=== PATIENT | female | born 2000 | race Caucasian/White ===

== ENCOUNTER 2021-04-13 11:14 | Emergency (ER) | payer OTHER ==
[2021-04-13 11:45] VITALS: BP 123/79; PULSE 92; RESP 18; TEMP 98.2
[2021-04-13 12:35] LABS: Basophils % (A) 1 %; Eosinophils % (A) 0 %; HCT 44.6 % (34.0-46.0); Lymphocytes # (A) 3.2 k/uL (1.0-4.8); Lymphocytes % (A) 37 %; MCH 32.5 pg (25.0-35.0); MCHC 33.7 g/dL (31.0-37.0); MCV 96.5 fL (80.0-100.0); Mean Platelet Volume 6.7; Monocytes # (A) 0.3 k/uL (0-1.0); Monocytes % (A) 3 %; Neutrophils % (A) 58 %; Platelet Count 325 k/uL (150-450); RBC 4.62 m/uL (3.80-5.40); RDW 12.9 % (11.5-15.5); WBC 8.7 k/uL (4.0-11.0)
--- NOTE | 2021-04-13 12:46 | XR ---
EXAMINATION TYPE: XR chest 2V DATE OF EXAM: 04/13/2021 COMPARISON: NONE HISTORY: Chest pain TECHNIQUE: Frontal and lateral views of the chest are obtained. FINDINGS: There is no focal air space opacity. No evidence for pneumothorax. No pleural effusion. The cardiac silhouette size is within normal limits. The osseous structures are grossly intact. IMPRESSION: 1. No acute cardiopulmonary process.
[2021-04-13 12:47] LABS: ALT 23 U/L (4-34); AST 31 U/L (14-36); African American GFR (CKD) >90 (>60 ml/min/1.73 sqM); Albumin 4.9 g/dL (3.5-5.0); Alkaline Phosphatase 64 U/L (38-126); Anion Gap 9 mmol/L; Blood Urea Nitrogen 10 mg/dL (7-17); Calcium 9.7 mg/dL (8.4-10.2); Carbon Dioxide 24 mmol/L (22-30); Chloride 104 mmol/L (98-107); Glucose 109 mg/dL (74-99); Magnesium 2.2 mg/dL (1.6-2.3); Non-African American GFR(CKD) >90 (>60 ml/min/1.73 sqM); Potassium 3.9 mmol/L (3.5-5.1); Sodium 137 mmol/L (137-145); Total Bilirubin 0.6 mg/dL (0.2-1.3); Total Protein 7.8 g/dL (6.3-8.2)
--- NOTE | 2021-04-13 12:49 | ED ---
Recheck HPI - General Chief Complaint: Recheck/Abnormal Lab/Rx Stated Complaint: seizure 3 days ago Time Seen by Provider: 04/13/21 11:55 Source: patient Mode of arrival: ambulatory Limitations: no limitations - History of Present Illness Initial Comments: Patient is a 20-year-old female presenting to the emergency department for a recheck after she had a syncopal event 3 days ago. Patient states she was at work, talking on the phone when she became diaphoretic, lightheaded and dizzy and then had a syncopal event for approximately 1 minute. Her coworkers told the patient that she seemed to be shaking during this minute long and was concerned that she may have had a seizure. She is no history of seizures, has not had syncopal events the past. Patient states she tried getting into her primary care's office today for checkup however was unsuccessful so she came to the ER for evaluation. She states over the weekend she just felt tired but o therwise her normal self. She has no specific complaints today. She denies any recent fevers or chills, no chest pain or shortness of breath. She denies being on any medications, she denies being . Abdominal pain, no nausea or vomiting. She has been eating well. She has no further complaints. Her vital signs are stable upon arrival. - Related Data Home Medications Medication Instructions Recorded Confirmed Enstilar 0.005%-0.064% Foam 1 applic TOPICAL BID 04/13/21 04/13/21 Allergies Allergy/AdvReac Type Severity Reaction Status Date / Time No Known Allergies Allergy Verified 04/13/21 14:17 Review of Systems ROS Statement: Those systems with pertinent positive or pertinent negative responses have been documented in the HPI. ROS Other: All systems not noted in ROS Statement are negative. Past Medical History Past Medical History: No Reported History History of Any Multi-Drug Resistant Organisms: None Reported Past Surgical History: No Surgical Hx Reported Past Psychological History: No Psychological Hx Reported Smoking Status: Vaper Past Alcohol Use History: None Reported Past Drug Use History: Marijuana General Exam - General Exam Comments Initial Comments: GENERAL: Patient is well-developed and well-nourished. Patient is nontoxic and in no acute distress. HEAD: Atraumatic, normocephalic. EYES: Pupils equal round and reactive to light, extraocular movements intact, sclera anicteric, conjunctiva are normal. Eyelids were unremarkable. ENT: TMs normal, nares patent, oropharynx clear without exudates. Moist mucous membranes. NECK: Normal range of motion, supple without lymphadenopathy or JVD. LUNGS: Unlabored respirations. Breath sounds clear to auscultation bilaterally and equal. No wheezes rales or rhonchi. HEART: Regular rate and rhythm without murmurs, rubs or gallops. ABDOMEN: Soft, nontender, normoactive bowel sounds. No guarding, no rebound. No masses appreciated. : Deferred MUSCULOSKELETAL: Normal extremities with adequate strength and normal range of motion, no pitting or edema. No clubbing or cyanosis. NEUROLOGICAL: Patient is alert and oriented x 3. Motor and sensory are also intact. Cranial nerves II through XII grossly intact. Symmetrical smile. Normal speech, normal gait. PSYCH: Normal mood, normal affect. SKIN: Warm, Dry, normal turgor, no rashes or lesions noted. Limitations: no limitations Course Vital Signs 04/13/21 11:41 Temperature 98.2 F Pulse Rate 92 Respiratory 18 Rate Blood Pressure 123/79 O2 Sat by Pulse 98 Oximetry Medical Decision Making - Medical Decision Making Patient is a 20-year-old female here for recheck after having a syncopal event 3 days ago while at work. According to coworkers she was shaking during this 1 minute and it feels like it could have been a seizure. She has no history of previous syncopal episodes or seizures. She is on no medications. Her vitals are stable upon arrival, her exam is unremarkable, she has no complaints today. EKG is reading normal sinus rhythm with sinus arrhythmia. Labs are all within normal limits including a negative troponin, hCG is negative, TSH is within normal limits. Urine shows no evidence of infection. Chest x-ray is normal. I discussed these findings with the patient. I recommended following up with her primary care. Return parameters were discussed with her and she verbalized understanding. Case discussed with Dr. Suero. - Lab Data Result diagrams: 04/13/21 12:16 04/13/21 12:16 Lab Results 04/13/21 04/13/21 04/13/21 Range/Units 12:16 12:16 12:16 WBC 8.7 (4.0-11.0) k/uL RBC 4.62 (3.80-5.40) m/uL Hgb 15.0 (11.4-16.0) gm/dL Hct 44.6 (34.0-46.0) % MCV 96.5 (80.0-100.0) fL MCH 32.5 (25.0-35.0) pg MCHC 33.7 (31.0-37.0) g/dL RDW 12.9 (11.5-15.5) % Plt Count 325 (150-450) k/uL MPV 6.7 Neutrophils % 58 % Lymphocytes % 37 % Monocytes % 3 % Eosinophils % 0 % Basophils % 1 % Neutrophils # 5.0 (1.3-7.7) k/uL Lymphocytes # 3.2 (1.0-4.8) k/uL Monocytes # 0.3 (0-1.0) k/uL Eosinophils # 0.0 (0-0.7) k/uL Basophils # 0.0 (0-0.2) k/uL Sodium 137 (137-145) mmol/L Potassium 3.9 (3.5-5.1) mmol/L Chloride 104 (98-107) mmol/L Carbon Dioxide 24 (22-30) mmol/L Anion Gap 9 mmol/L BUN 10 (7-17) mg/dL Creatinine 0.60 (0.52-1.04) mg/dL Est GFR (CKD-EPI)AfAm >90 (>60 ml/min/1.73 sqM) Est GFR (CKD-EPI)NonAf >90 (>60 ml/min/1.73 sqM) Glucose 109 H (74-99) mg/dL Calcium 9.7 (8.4-10.2) mg/dL Magnesium 2.2 (1.6-2.3) mg/dL Total Bilirubin 0.6 (0.2-1.3) mg/dL AST 31 (14-36) U/L ALT 23 (4-34) U/L Alkaline Phosphatase 64 (38-126) U/L Troponin I <0.012 (0.000-0.034) ng/mL Total Protein 7.8 (6.3-8.2) g/dL Albumin 4.9 (3.5-5.0) g/dL TSH 0.655 (0.465-4.680) mIU/L HCG, Quant <2.4 mIU/mL Urine Color Urine Appearance (Clear) Urine pH (5.0-8.0) Ur Specific [place] (1.001-1.035) Urine Protein (Negative) Urine Glucose (UA) (Negative) Urine Ketones (Negative) Urine Blood (Negative) Urine Nitrite (Negative) Urine Bilirubin (Negative) Urine Urobilinogen (<2.0) mg/dL Ur Leukocyte Esterase (Negative) Urine RBC (0-5) /hpf Urine WBC (0-5) /hpf Ur Squamous Epith Cells (0-4) /hpf Urine Bacteria (None) /hpf 04/13/21 Range/Units 12:16 WBC (4.0-11.0) k/uL RBC (3.80-5.40) m/uL Hgb (11.4-16.0) gm/dL Hct (34.0-46.0) % MCV (80.0-100.0) fL MCH (25.0-35.0) pg MCHC (31.0-37.0) g/dL RDW (11.5-15.5) % Plt Count (150-450) k/uL MPV Neutrophils % % Lymphocytes % % Monocytes % % Eosinophils % % Basophils % % Neutrophils # (1.3-7.7) k/uL Lymphocytes # (1.0-4.8) k/uL Monocytes # (0-1.0) k/uL Eosinophils # (0-0.7) k/uL Basophils # (0-0.2) k/uL Sodium (137-145) mmol/L Potassium (3.5-5.1) mmol/L Chloride (98-107) mmol/L Carbon Dioxide (22-30) mmol/L Anion Gap mmol/L BUN (7-17) mg/dL Creatinine (0.52-1.04) mg/dL Est GFR (CKD-EPI)AfAm (>60 ml/min/1.73 sqM) Est GFR (CKD-EPI)NonAf (>60 ml/min/1.73 sqM) Glucose (74-99) mg/dL Calcium (8.4-10.2) mg/dL Magnesium (1.6-2.3) mg/dL Total Bilirubin (0.2-1.3) mg/dL AST (14-36) U/L ALT (4-34) U/L Alkaline Phosphatase (38-126) U/L Troponin I (0.000-0.034) ng/mL Total Protein (6.3-8.2) g/dL Albumin (3.5-5.0) g/dL TSH (0.465-4.680) mIU/L HCG, Quant mIU/mL Urine Color Colorless Urine Appearance Clear (Clear) Urine pH 6.0 (5.0-8.0) Ur Specific [place] 1.005 (1.001-1.035) Urine Protein Negative (Negative) Urine Glucose (UA) Negative (Negative) Urine Ketones Negative (Negative) Urine Blood Trace H (Negative) Urine Nitrite Negative (Negative) Urine Bilirubin Negative (Negative) Urine Urobilinogen <2.0 (<2.0) mg/dL Ur Leukocyte Esterase Negative (Negative) Urine RBC <1 (0-5) /hpf Urine WBC <1 (0-5) /hpf Ur Squamous Epith Cells 4 (0-4) /hpf Urine Bacteria Rare H (None) /hpf - EKG Data EKG Comments: Normal sinus rhythm with sinus arrhythmia, no signs of acute process at this time. Ventricular rate 71, ND interval 112, QT 354. Disposition Clinical Impression: Syncope Disposition: HOME SELF-CARE Condition: Stable Instructions (If sedation given, give patient instructions): Normal Exam (ED) Additional Instructions: Please return to the Emergency Department if symptoms worsen or any other concerns. Is patient prescribed a controlled substance at d/c from ED?: No Referrals: Subhash Clayton DO [Primary Care Provider] - 1-2 days Time of Disposition: 14:26
[2021-04-13 13:38] LABS: Appearance,Urine Clear (Clear); Bacteria,Urine Rare /hpf; Bilirubin,Urine Negative (Negative); Blood,Urine Trace (Negative); Color,Urine Colorless; Glucose,Urine (UA) Negative (Negative); Ketones,Urine Negative (Negative); Leukocyte Esterase,Urine Negative (Negative); Nitrite,Urine Negative (Negative); Protein,Urine Negative (Negative); RBC,Urine <1 /hpf (0-5); Specific Gravity,Urine 1.005 (1.001-1.035); Squamous Epithelial Cell,Urine 4 /hpf (0-4); Urobilinogen,Urine <2.0 mg/dL (<2.0); WBC,Urine <1 /hpf (0-5)
[2021-04-13 13:40] LABS: HCG,Quantitative Serum <2.4 mIU/mL
== END 2021-04-13 14:39 | disposition home or self-care (01) ==
LOC: EC 11:14
DX: R55 Syncope and collapse (principal); R56.9 Unspecified convulsions; R42 Dizziness and giddiness; R61 Generalized hyperhidrosis; F17.290 Nicotine dependence, other tobacco product, uncomplicated
CPT/HCPCS: 36415; 71046; 80053; 81001; 83735; 84443; 84484; 84702; 85025; 93005; 99285

== ENCOUNTER 2022-04-06 10:38 | Emergency (ER) | payer OTHER ==
[2022-04-06 11:21] VITALS: BP 140/83; PULSE 114; RESP 20; TEMP 98
--- NOTE | 2022-04-06 12:22 | ED ---
Lower Extremity Injury HPI - General Chief Complaint: Extremity Injury, Lower Stated Complaint: ankle injury Time Seen by Provider: 04/06/22 11:23 Source: patient, RN notes reviewed Mode of arrival: ambulatory Limitations: no limitations - History of Present Illness Initial Comments: 21-year-old female presents emergency Department chief complaint of right ankle, right foot pain. Patient states she rolled her ankle for clot yesterday. Patient denies any paresthesias states her swelling, bruising. No prior fractures. Dies any pain proximal to her right ankle no other complaints. - Related Data Home Medications Medication Instructions Recorded Confirmed Enstilar 0.005%-0.064% Foam 1 applic TOPICAL BID 04/13/21 04/13/21 Allergies Allergy/AdvReac Type Severity Reaction Status Date / Time No Known Allergies Allergy Verified 04/06/22 11:21 Review of Systems ROS Statement: Those systems with pertinent positive or pertinent negative responses have been documented in the HPI. ROS Other: All systems not noted in ROS Statement are negative. Past Medical History Past Medical History: No Reported History History of Any Multi-Drug Resistant Organisms: None Reported Past Surgical History: No Surgical Hx Reported Past Psychological History: No Psychological Hx Reported Smoking Status: Vaper Past Alcohol Use History: None Reported Past Drug Use History: Marijuana General Exam Limitations: no limitations General appearance: alert, in no apparent distress Head exam: Present: atraumatic, normocephalic, normal inspection Neck exam: Present: normal inspection, full ROM. Absent: tenderness, meningismus, lymphadenopathy Respiratory exam: Present: normal lung sounds bilaterally. Absent: respiratory distress, wheezes, rales, rhonchi, stridor Cardiovascular Exam: Present: regular rate, normal rhythm, normal heart sounds. Absent: systolic murmur, diastolic murmur, rubs, gallop, clicks Extremities exam: Present: other (Right ankle, right foot there is ecchymosis, swelling with tenderness palpation, neurovascular intact no proximal tib-fib tenderness) Course Vital Signs 04/06/22 11:19 Temperature 98 F Pulse Rate 114 H Respiratory 20 Rate Blood Pressure 140/83 O2 Sat by Pulse 99 Oximetry Procedures - Orthopedic Splinting/Casting Injury #1 Side: right Lower Extremity Injury Location: short leg, foot Lower Extremity Immobilizer: posterior splint, synthetic pre-padded splint Other Orthopedic Equipment: crutches Medical Decision Making - Medical Decision Making 20-year-old presented for right foot injury patient has evidence of fifth meta tarsal fracture on x-ray as read by radiologist. Patient was splinted, crutches were provided, patient will follow-up with orthopedics return parameters were discussed. Disposition Clinical Impression: Open nondisplaced fracture of fifth right metatarsal bone Disposition: HOME SELF-CARE Condition: Stable Instructions (If sedation given, give patient instructions): Foot Fracture in Adults (ED) Additional Instructions: Please return to the Emergency Department if symptoms worsen or any other concerns. Is patient prescribed a controlled substance at d/c from ED?: No Referrals: Subhash Clayton DO [Primary Care Provider] - 1-2 days Graeme Montanez MD [STAFF PHYSICIAN] - 1-2 days Time of Disposition: 12:35
--- NOTE | 2022-04-06 12:28 | XR ---
EXAMINATION TYPE: XR ankle complete RT, XR foot complete RT DATE OF EXAM: 04/06/2022 CLINICAL HISTORY: Rolling injury with pain TECHNIQUE: Frontal, lateral and oblique images of the right ankle and foot are obtained. COMPARISON: None. FINDINGS: There is no acute fracture/dislocation evident in the right ankle. The ankle mortise appe ars within normal limits. The overlying soft tissue appears unremarkable. Linear lucency consistent with nondisplaced transverse fracture through base of fifth metatarsal. Th e joint spaces in the right foot are preserved. Overlying soft tissue is unremarkable. IMPRESSION: There is an acute nondisplaced transverse fracture base of fifth metatarsal. (Suero type fracture)
== END 2022-04-06 13:30 | disposition home or self-care (01) ==
LOC: EC 10:38
DX: S92.354B Nondisplaced fracture of fifth metatarsal bone, right foot, initial encounter for open fracture (principal); F17.209 Nicotine dependence, unspecified, with unspecified nicotine-induced disorders; X58.XXXA Exposure to other specified factors, initial encounter
CPT/HCPCS: 29515; 99283

== ENCOUNTER → 2022-08-04 | Outpatient (CLI) | payer OTHER ==
[2022-08-04 16:04] LABS: HCT 30.8 % (37.2-46.3); HGB 10.1 g/dL (12.0-15.0); MCHC 32.8 g/dL (32.0-37.0); MCV 97.5 fL (80.0-97.0); Mean Platelet Volume 8.9 fL (9.5-12.2); NRBC Per 100 WBC 0 /100 WBCS (0.0-0.0); Platelet Count 244 X 10*3/uL (140-440); RBC 3.16 X 10*6/uL (4.10-5.20); WBC 10.12 X 10*3/uL (4.50-10.00)
== END | disposition home or self-care (01) ==
LOC: LABWHC1 09:58
PROVIDERS: ATTEND Obstetrics & Gynecology
DX: Z34.82 Encounter for supervision of other normal pregnancy, second trimester (principal); Z3A.00 Weeks of gestation of pregnancy not specified
CPT/HCPCS: 36415; 82950; 85027

== ENCOUNTER → 2022-08-13 | Outpatient (CLI) | payer BC ==
[2022-08-13 11:56] LABS: Glucose 3 Hour, Gest 209 mg/dL
== END | disposition home or self-care (01) ==
LOC: LABWHC1 07:40
PROVIDERS: ATTEND Obstetrics & Gynecology
DX: O99.810 Abnormal glucose complicating pregnancy (principal); Z3A.00 Weeks of gestation of pregnancy not specified
CPT/HCPCS: 36415; 82951; 82952

== ENCOUNTER 2022-10-11 02:26 | Inpatient (IN) | payer BC ==
[2022-10-11 02:40] LABS: Glucose,Whole Blood 90 mg/dL (70-110)
[2022-10-11] MEDS ORDERED: LIDOCAINE 0.5% (PF) 5 MG/ML (50 ML SDV) SQ PRN (02:48)
[2022-10-11] MEDS ORDERED: TERBUTALINE 1 MG/ML VIAL SQ PRN (02:48)
[2022-10-11] MEDS ORDERED: BUTORPHANOL 1 MG/ML 1 ML VIAL IV PRN (02:49)
[2022-10-11] MEDS: LACTATED RINGERS 1,000 ML IV SCH ×5 (03:00→22:09)
[2022-10-11 03:09] LABS: Basophils # (A) 0.1 k/uL (0-0.2); Basophils % (A) 1 %; Eosinophils # (A) 0.1 k/uL (0-0.7); Eosinophils % (A) 1 %; HCT 34.1 % (34.0-46.0); Lymphocytes # (A) 2.7 k/uL (1.0-4.8); Lymphocytes % (A) 31 %; MCH 32.9 pg (25.0-35.0); MCHC 35.2 g/dL (31.0-37.0); MCV 93.4 fL (80.0-100.0); Mean Platelet Volume 7.2; Monocytes # (A) 0.5 k/uL (0-1.0); Monocytes % (A) 5 %; Neutrophils # (A) 5.1 k/uL (1.3-7.7); Neutrophils % (A) 59 %; Platelet Count 199 k/uL (150-450); RBC 3.65 m/uL (3.80-5.40); RDW 14.3 % (11.5-15.5); WBC 8.7 k/uL (3.8-10.6)
[2022-10-11 05:59] LABS: Glucose,Whole Blood 76 mg/dL (70-110)
[2022-10-11] MEDS ORDERED: OXYTOCIN 30 UNITS/500 ML NS 30 UNIT in SALINE 1 500ML.BAG IV SCH ×2 (06:15→17:31)
[2022-10-11] MEDS ORDERED: SODIUM CHLORIDE 0.9% 100 ML BAG ONE (07:28)
[2022-10-11] MEDS ORDERED: fentaNYL (PF) 50 MCG/ML 5 ML AMP ONE (07:28)
[2022-10-11] MEDS ORDERED: ROPIVACAINE 5 MG/ML 20 ML AMPULE ONE (07:28)
--- NOTE | 2022-10-11 09:08 | P.HPOB ---
History of Present Illness H&P Date: 10/11/22 Chief Complaint: Spontaneous rupture membranes This is a 22-year-old female 1 para 0 with an estimated date of confinement of 10/13/2022, estimated gestational age of 39-5/7 weeks, who presents to labor and delivery with complaints of spontaneous rupture membranes at approximately 1 AM with clear fluid noted. She has been feeling contractions even prior to rupture membranes but they became stronger after rupture membranes. Her has been complicated by gestational diabetes diet controlled. She also was noted to have a marginal cord insertion. She has been getting regular surveillance with nonstress tests and biophysical profiles in the office. labs: Hepatitis B surface antigen-negative RPR-nonreactive Rubella-immune Blood type-O+ Antibody screen-negative HIV-nonreactive Hemoglobin-12.6 Toxoplasma screen-negative Random glucose-77 Pap smear-atypical spinous cells of undetermined significance with positive high risk HPV GC/Chlamydia/Trichomonas-negative One hour Glucola-186 Three-hour Glucola-abnormal Group B streptococcus-negative Obstetrical history: This is her first Gynecologic history: She does have a history of Trichomonas treated in the past. Social history: She is single. She works full-time as a motion graphics artist. Review of Systems Constitutional: Denies chills, Denies fever Eyes: denies blurred vision, denies pain Ears, nose, mouth and throat: Denies headache, Denies sore throat Cardiovascular: Denies chest pain, Denies shortness of breath Respiratory: Denies cough Gastrointestinal: Reports abdominal pain (Contractions) Genitourinary: Reports pelvic pain, Reports Musculoskeletal: Reports low back pain Integumentary: Denies pruritus, Denies rash Neurological: Denies numbness, Denies weakness Psychiatric: Denies anxiety, Denies depression Past Medical History Past Medical History: No Reported History Additional Past Medical History / Comment(s): GDM History of Any Multi-Drug Resistant Organisms: None Reported Past Surgical History: No Surgical Hx Reported Past Anesthesia/Blood Transfusion Reactions: No Reported Reaction Past Psychological History: No Psychological Hx Reported Smoking Status: Never smoker Past Alcohol Use History: None Reported Past Drug Use History: None Reported - Past Family History Mother Family Medical History: Cancer (Cervix) Medications and Allergies Home Medications Medication Instructions Recorded Confirmed Type Vit No.179/Iron/Folic 1 each PO DAILY 10/11/22 10/11/22 History [ Tablet] Allergies Allergy/AdvReac Type Severity Reaction Status Date / Time No Known Allergies Allergy Verified 04/06/22 11:21 Exam Osteopathic Statement: *. No significant issues noted on an osteopathic structural exam other than those noted in the History and Physical/Consult. Vital Signs Temp Pulse Resp BP Pulse Ox 10/11/22 02:54 98.0 F 100 16 135/77 93 L 10/11/22 02:27 98.0 F 100 16 135/72 93 L Intake and Output 10/10/22 10/11/22 10/11/22 22:59 06:59 14:59 Other: # Voids 1 Weight 50.349 kg HEENT: Within normal limits Heart: Regular rate and rhythm Lungs: Clear to auscultation bilaterally Abdomen: Cervix: 1 cm/80%/-2 station on admission. Grossly ruptured clear fluid is noted with positive amnisure. heart tones: Category 1 Contractions: Every 2-3 minutes Extremities: Negative Homans Results Result Diagrams: 10/11/22 03:00 Abnormal Lab Results - Last 24 Hours (Table) 10/11/22 Range/Units 03:00 RBC 3.65 L (3.80-5.40) m/uL Assessment and Plan (1) 39 weeks gestation of Current Visit: Yes Status: Acute Code(s): Z3A.39 - 39 WEEKS GESTATION OF SNOMED Code(s): 19284007 (2) Gestational diabetes mellitus (GDM) affecting first Current Visit: Yes Status: Acute Code(s): O24.419 - GESTATIONAL DIABETES MELLITUS IN , UNSP CONTROL SNOMED Code(s): 70360800904229 Plan: Admission for active labor. Epidural anesthesia if desired. Oxytocin augmentation of labor. Expectant management. Will monitor sugars while in labor.
[2022-10-11 09:30] LABS: Glucose,Whole Blood 73 mg/dL (70-110)
[2022-10-11 12:12] LABS: Glucose,Whole Blood 65 mg/dL (70-110)
[2022-10-11] MEDS ORDERED: CITRIC ACID-SODIUM CITRATE 15 ML CUP PO ONE (15:37)
[2022-10-11] MEDS ORDERED: NALBUPHINE 10 MG/ML (1 ML AMP) ONE (16:05)
[2022-10-11] MEDS ORDERED: ONDANSETRON 4 MG/2 ML VIAL ONE (16:05)
[2022-10-11] MEDS ORDERED: MORPHINE SULFATE (PF) 0.3 MG/0.3 ML SYR ONE (16:05)
[2022-10-11] MEDS ORDERED: OXYTOCIN 30 UNITS/500 ML NS BAG IV ONE (16:05)
[2022-10-11] MEDS ORDERED: KETOROLAC 15 MG/ML 1 ML VIAL ONE (16:05)
[2022-10-11] MEDS ORDERED: METHYLERGONOVINE 0.2 MG/ML 1 ML AMP ONE (16:05)
[2022-10-11] MEDS ORDERED: HYDROmorphone 0.5 MG/0.5 ML SYRINGE IVP PRN ×2 (16:29→17:31)
[2022-10-11] MEDS ORDERED: KETOROLAC 15 MG/ML 1 ML VIAL IVP PRN (16:29)
[2022-10-11] MEDS ORDERED: NALOXONE 0.4 MG/ML 1 ML VIAL IV PRN (16:29)
[2022-10-11] MEDS ORDERED: ONDANSETRON 4 MG/2 ML VIAL IVP PRN (16:29)
--- NOTE | 2022-10-11 16:55 | P.OP ---
Date of Procedure: 10/11/22 Preoperative Diagnosis: 1. Intrauterine at 39-5/7 weeks. 2. Failure to progress. 3. Gestational diabetes-diet controlled. Postoperative Diagnosis: Same Procedure(s) Performed: Primary low transverse section Anesthesia: spinal (Duramorph) Surgeon: Delmis Canada Estimated Blood Loss (ml): 1,000 Pathology: other (Placenta) Condition: stable Disposition: floor Indications for Procedure: This is a 22-year-old female 1 para 0 at 39-5/7 weeks who presented with spontaneous rupture membranes. She underwent oxytocin augmentation of labor and did receive epidural anesthesia. She reached a maximum of about 6 cm in her anterior lip of the cervix became very swollen. She had not made significant change for several hours and was getting very uncomfortable due to her epidural not working very well. The decision was made with the patient and Dr. Jackson who was present to proceed with primary section. I have discussed the risks, benefits, and alternative therapies for the above- mentioned procedure and for both sedation/anesthesia as well as necessary blood products administration, if indicated, as they pertain to this patient. The patient has indicated her understanding and acceptance of the risks and procedures discussed. Operative Findings: A viable female infant is noted in the left occiput posterior lie in the vertex presentation with scores of 9 at 1 minute and 9 at 5 minutes and infant weight of 7 lbs. 10 oz. Normal uterus tubes and ovaries are noted. Description of Procedure: The patient is taken to the operating room where she is placed in the dorsal supine position with leftward tilt after spinal Duramorph anesthesia is given. Previous epidural was removed prior to going back. She is prepped and draped in the normal sterile fashion. Skin was tested and found to be adequately anesthetized. A Pfannenstiel skin incision was made with a scalpel. A second knife was used to carry the incision down to the underlying layer of fascia. The fascia was nicked in the midline with a scalpel and then extended laterally bilaterally with Monreal scissors. The anterior lip of the fascia was grasped with 2 Alfonso clamps and then dissected off the underlying rectus muscle in the midline with Monreal scissors. The inferior aspect of the fascial incision was grasped with 2 Alfonso clamps and dissected off the underlying rectus muscle and the midline with Monreal scissors. Next the peritoneum layer was tented up with 2 hemostats and then entered sharply with the scalpel. The incision is extended superiorly and inferiorly with Metzenbaum scissors. Next a DeLee retractor is placed. The vesicouterine peritoneum is entered sharply with Metzenbaum scissors and extended laterally bilaterally with Metzenbaum scissors and then the bladder flap is pushed inferiorly. The lower uterine segment is incised in transverse fashion with the scalpel and then bluntly entered with a hemostat. Clear fluid is noted. The incision was then extended laterally bilaterally with 2 fingers. Next the 's head is delivered through the incision. was noted to be in a left occiput posterior lie. Nose and mouth are bulb suctioned. The remainder of the is easily delivered and placed on mother's abdomen. Cord is clamped and cut. is taken to warmer by nursing staff. Uterine fundus is gently massaged and placenta is delivered manually. Uterus is exteriorized and cleared of all clots and debris. Uterus initially is noted to be boggy and Pitocin is given IV. Uterine incision is closed with 0 Vicryl suture in a running locked fashion. A second layer of 0 Vicryl suture is used in a running fashion for hemostasis. Once adequate hemostasis as assured, the vesicouterine peritoneum is reapproximated with 2-0 Vicryl suture in a running fashion. Posterior cul-de-sac is suctioned of all clots and debris. Uterus is returned to the abdomen. Incision is noted to be hemostatic. Peritoneal layer is closed with 0 Vicryl suture in a running fashion. Muscle layer is reapproximated with 0 Vicryl suture in interrupted fashion. Fascia layer is then closed with 0 PDS suture with 2 sutures meeting in the midline and the knots buried in either side and in the midline. The subcutaneous tissue was then closed with 2-0 Vicryl suture. Skin layer was then closed with renee. All sponge and needle counts are correct. At this point her fundus was noted to be slightly above the umbilicus and towards the left side. Uterus was massaged and a large amount of clot was expressed from the uterus. A gloved hand was placed within the uterine cavity and some more clot was removed. After removing this extra clot, no active bleeding was noted. She was given 1 dose of Methergine 0.2 mg IM while in the operating room. Uterus was watched and fundus did firm up. The patient is taken to recovery room in stable condition. We'll give rectal Cytotec when she reaches the room.
[2022-10-11] MEDS ORDERED: miSOPROStoL 200 MCG TAB RECTAL STA (17:00)
[2022-10-11] MEDS ORDERED: HYDROCORTISONE 2.5% RECTAL CREAM 30 GM TUBE RECTAL PRN (17:31)
[2022-10-11] MEDS ORDERED: diphenhydrAMINE 50 MG/ML 1 ML VIAL IVP PRN ×2 (17:31)
[2022-10-11] MEDS ORDERED: diphenhydrAMINE 25 MG CAP PO PRN (17:31)
[2022-10-11] MEDS ORDERED: diphenhydrAMINE 50 MG CAP PO PRN (17:31)
[2022-10-11] MEDS ORDERED: HYDROmorphone 1 MG/ML 1 ML SYRINGE IVP PRN (17:31)
[2022-10-11] MEDS ORDERED: SIMETHICONE 80 MG CHEWABLE PO PRN (17:31)
[2022-10-11] MEDS ORDERED: METOCLOPRAMIDE 5 MG/ML 2 ML VIAL IVP PRN (17:31)
[2022-10-11] MEDS ORDERED: ZOLPIDEM 5 MG TAB PO PRN (17:31)
[2022-10-11] MEDS ORDERED: LANOLIN CREAM 5 GM TUBE TOPICAL PRN (17:31)
[2022-10-11] MEDS: diphenhydrAMINE 50 MG/ML 1 ML VIAL IVP PRN ×2 (17:55→22:55)
--- NOTE | 2022-10-11 18:32 | P.PN ---
Progress Note - Text Progress Note Date: 10/11/22 Patient is status post primary section at about 418 this afternoon. I was called to see the patient in regards to some low blood pressures and tachycardia. Patient did have a significant blood loss at the time of surgery secondary to uterine atony. Quantitative blood loss was estimated at approximately 1000 mL. Patient is status post IV Pitocin in the operating room, 0.2 of Methergine in the operating room and Dr. Canada also gave her Cytotec rectally when she went back to the room. Exam at this time shows the uterus to be firm and below the umbilicus. She only has some dark red blood and no evidence of active bleeding. It appears the atony has resolved. Patient did develop some tachycardia to as high as 180s however this is come down to the 140s. Current blood pressures 130s over 80s however she was 90s over 60s previously. I did order a stat CBC. I did discuss with the patient and her my concerns for the amount of blood loss she had and recommended that she go ahead and proceed with transfusion of 1 unit of packed red blood cells. She is in complete agreement and wishes to proceed. Plan is to proceed with transfusion as soon as possible continue IV fluid resuscitation, and close observation.
[2022-10-11 18:55] LABS: Basophils % (A) 0 %; Eosinophils % (A) 0 %; HCT 28.4 % (34.0-46.0); Lymphocytes # (A) 0.9 k/uL (1.0-4.8); Lymphocytes % (A) 7 %; MCH 33.2 pg (25.0-35.0); MCHC 35.1 g/dL (31.0-37.0); MCV 94.5 fL (80.0-100.0); Mean Platelet Volume 8.3; Monocytes # (A) 0.8 k/uL (0-1.0); Monocytes % (A) 6 %; Neutrophils # (A) 11.6 k/uL (1.3-7.7); Neutrophils % (A) 84 %; Platelet Count 168 k/uL (150-450); RBC 3.01 m/uL (3.80-5.40); RDW 14.8 % (11.5-15.5); WBC 13.8 k/uL (3.8-10.6)
--- NOTE | 2022-10-11 19:03 | P.PN ---
Progress Note - Text Progress Note Date: 10/11/22 Patient is given approximately 1 L of IV fluids and has been closely evaluated. Hemoglobin is 10.0, however I feel clinically that it is probably significantly lower than that. After the IV fluid bolus we've brought her pulse down from 160s to 110-120s. Patient is feeling much better. Going to proceed with transfusion of 1 unit of packed red blood cells. Continue the Lacey catheter watch her urine output. We'll repeat a CBC early tomorrow morning. Uterus is firm and appropriate fundal height. At this point again there is no evidence of ongoing bleeding. Continue to watch closely.
[2022-10-11] MEDS: SENNOSIDES-DOCUSATE SODIUM 1 EACH TAB PO SCH (22:01)
[2022-10-11] MEDS: ACETAMINOPHEN TAB 500 MG TAB PO SCH (22:05)
[2022-10-11] MEDS: ACETAMINOPHEN IV (For NPO) 1,000 MG in EMPTY BAG 1 BAG IVPB SCH (22:05)
[2022-10-12] MEDS: KETOROLAC 15 MG/ML 1 ML VIAL IVP SCH ×3 (00:14→12:27)
[2022-10-12] MEDS: IBUPROFEN 600 MG TAB PO SCH ×4 (00:14→20:12)
[2022-10-12] MEDS: ACETAMINOPHEN TAB 500 MG TAB PO SCH ×4 (02:58→23:11)
[2022-10-12] MEDS: ACETAMINOPHEN IV (For NPO) 1,000 MG in EMPTY BAG 1 BAG IVPB SCH (03:57)
[2022-10-12 05:31] LABS: Basophils % (A) 0 %; Eosinophils % (A) 0 %; HCT 31.3 % (34.0-46.0); Lymphocytes # (A) 2.4 k/uL (1.0-4.8); Lymphocytes % (A) 21 %; MCH 33.1 pg (25.0-35.0); MCHC 35.1 g/dL (31.0-37.0); MCV 94.2 fL (80.0-100.0); Mean Platelet Volume 7.2; Monocytes # (A) 0.8 k/uL (0-1.0); Monocytes % (A) 7 %; Neutrophils # (A) 8.1 k/uL (1.3-7.7); Neutrophils % (A) 69 %; Platelet Count 142 k/uL (150-450); RBC 3.33 m/uL (3.80-5.40); RDW 14.3 % (11.5-15.5); WBC 11.7 k/uL (3.8-10.6)
[2022-10-12] MEDS: diphenhydrAMINE 50 MG/ML 1 ML VIAL IVP PRN ×2 (05:37→10:38)
[2022-10-12] MEDS: SENNOSIDES-DOCUSATE SODIUM 1 EACH TAB PO SCH ×2 (07:51→20:13)
--- NOTE | 2022-10-12 08:09 | P.PNOBGPC ---
Subjective - Subjective Principal diagnosis: Status post primary section postoperative day #1 Interval history: Patient is doing better today. She was given 1 unit of blood yesterday due to tachycardia and concern for increased blood loss. She has had minimal bleeding through the night. She is working at trying to breast-feed. Her pain is fairly well controlled at this time. She still has her Lacey catheter in and has not ambulated yet. Patient reports: Reports appetite normal, Reports pain well controlled [place]: nursing well Objective - Vital Signs Latest vital signs: Vital Signs Temp Pulse Pulse Resp BP BP BP 10/12/22 05:36 16 10/12/22 03:58 98.0 F 77 14 98/59 10/12/22 00:00 98.5 F 109 H 16 115/79 10/11/22 22:05 99.6 F 94 16 117/72 10/11/22 21:29 99.9 F H 99 16 122/78 10/11/22 21:00 16 10/11/22 20:57 100.5 F H 94 16 123/76 10/11/22 20:47 100.2 F H 103 H 16 124/77 10/11/22 20:33 102.0 F H 103 H 18 124/76 10/11/22 19:00 101.6 F H 109 H 16 128/84 10/11/22 18:30 144 H 20 132/84 10/11/22 18:00 157 H 26 H 105/57 10/11/22 17:45 181 H 30 H 88/54 10/11/22 17:30 153 H 28 H 116/56 10/11/22 17:15 93 18 93/62 10/11/22 17:00 97.7 F 82 18 102/69 Pulse Ox 10/12/22 05:36 10/12/22 03:58 97 10/12/22 00:00 97 10/11/22 22:05 100 10/11/22 21:29 100 10/11/22 21:00 10/11/22 20:57 100 10/11/22 20:47 100 10/11/22 20:33 98 10/11/22 19:00 97 10/11/22 18:30 98 10/11/22 18:00 100 10/11/22 17:45 100 10/11/22 17:30 100 10/11/22 17:15 93 L 03/13/23 17:00 98 Intake and Output 10/11/22 10/12/22 10/12/22 22:59 06:59 14:59 Intake Total 310 Output Total 1667 3442 Balance -1357 -1950 Intake: Blood Product 310 Rc As-1 Unit 310 [id number] Output: Urine 650 1950 Estimated Blood Loss 112 Output, Quantitative 905 Blood Loss Other: Voiding Method Indwelling Catheter - Exam Extremities: Present: normal. Absent: tenderness, edema Abdomen: Present: normal appearance, soft (Minimal bowel sounds are noted), tenderness (Minimal). Absent: distention Incision: Present: normal, dry, intact. Absent: erythematous Uterus: Present: normal, firm. Absent: tenderness - Labs Labs: Abnormal Lab Results - Last 24 Hours (Table) 10/11/22 10/11/22 10/11/22 Range/Units 03:00 12:10 18:45 WBC 13.8 H (3.8-10.6) k/uL RBC 3.01 L (3.80-5.40) m/uL Hgb 10.0 L D (11.4-16.0) gm/dL Hct 28.4 L (34.0-46.0) % Plt Count (150-450) k/uL Neutrophils # 11.6 H (1.3-7.7) k/uL Lymphocytes # 0.9 L (1.0-4.8) k/uL POC Glucose (mg/dL) 65 L (70-110) mg/dL Crossmatch See Detail 10/12/22 Range/Units 04:57 WBC 11.7 H (3.8-10.6) k/uL RBC 3.33 L (3.80-5.40) m/uL Hgb 11.0 L (11.4-16.0) gm/dL Hct 31.3 L (34.0-46.0) % Plt Count 142 L (150-450) k/uL Neutrophils # 8.1 H (1.3-7.7) k/uL Lymphocytes # (1.0-4.8) k/uL POC Glucose (mg/dL) (70-110) mg/dL Crossmatch Assessment and Plan Assessment: Status post primary low transverse section postoperative day #1 Blood loss anemia-stable today (1) 39 weeks gestation of Current Visit: Yes Status: Acute Code(s): Z3A.39 - 39 WEEKS GESTATION OF SNOMED Code(s): 36631693 (2) Gestational diabetes mellitus (GDM) affecting first Current Visit: Yes Status: Acute Code(s): O24.419 - GESTATIONAL DIABETES MELLITUS IN , UNSP CONTROL SNOMED Code(s): 67636620758771 Plan: Will remove Lacey and work on ambulating today. Once she is passing flatus, will advance diet as tolerated. We will continue to monitor bleeding. Hemoglobin has improved from 10 yesterday to 11 today.
[2022-10-12] MEDS ORDERED: PRENATAL VIT-IRON-FOLIC ACID 1 EACH TABLET PO SCH (09:00)
--- NOTE | 2022-10-12 09:01 | P.PN ---
Progress Note - Text Progress Note Date: 10/12/22 Postoperative day 1 status post section under spinal anesthesia, and i ntrathecal morphine given for postoperative analgesia, patient doing well, there is no anesthesia related complications, Patient had no headache, vital signs stable , Assessment and plan= postop day 1 status post , doing well there is no anesthesia related complication.
[2022-10-13] MEDS: IBUPROFEN 600 MG TAB PO SCH (02:17)
[2022-10-13 04:10] VITALS: TEMP 97.6
[2022-10-13] MEDS: ACETAMINOPHEN TAB 500 MG TAB PO SCH ×2 (05:11→08:24)
[2022-10-13 07:15] LABS: Basophils # (A) 0.1 k/uL (0-0.2); Basophils % (A) 1 %; Eosinophils # (A) 0.3 k/uL (0-0.7); Eosinophils % (A) 2 %; HCT 30.4 % (34.0-46.0); HGB 10.5 gm/dL (11.4-16.0); Lymphocytes # (A) 2.5 k/uL (1.0-4.8); Lymphocytes % (A) 24 %; MCHC 34.3 g/dL (31.0-37.0); MCV 96.1 fL (80.0-100.0); Mean Platelet Volume 7.1; Monocytes # (A) 0.5 k/uL (0-1.0); Monocytes % (A) 5 %; Neutrophils # (A) 6.7 k/uL (1.3-7.7); Neutrophils % (A) 64 %; Platelet Count 171 k/uL (150-450); RBC 3.17 m/uL (3.80-5.40); RDW 14.7 % (11.5-15.5); WBC 10.5 k/uL (3.8-10.6)
[2022-10-13 08:22] VITALS: BP 113/70; PULSE 75; RESP 14
[2022-10-13] MEDS: SENNOSIDES-DOCUSATE SODIUM 1 EACH TAB PO SCH (08:23)
--- NOTE | 2022-10-13 08:36 | P.DS ---
Providers Date of admission: 10/11/22 02:49 Expected date of discharge: 10/13/22 Attending physician: Delmis Canada Primary care physician: Stated None - Discharge Diagnosis(es) (1) 39 weeks gestation of Current Visit: Yes Status: Acute (2) Gestational diabetes mellitus (GDM) affecting first Current Visit: Yes Status: Acute Hospital Course: This is a 22-year-old female 1 para 0 at 39-5/7 weeks who presented with spontaneous rupture of membranes. She underwent oxytocin augmentation of labor. She reached a maximum of about 6 cm and began swelling on her cervix in becoming very uncomfortable. The decision was made to proceed with delivery. She underwent a primary low transverse section under spinal Duramorph anesthesia on 10/11/2022 and delivered a viable female with scores of 9 at 1 minute and 9 at 5 minutes and infant weight of 7 lbs. 10 oz. She did have some immediate hemorrhage shortly after delivery and was given oxytocin, Methergine, and rectal Cytotec. She did have approximate 1000 mL blood loss immediately . She became symptomatic shortly after delivery and was given 1 unit of blood. Her hemoglobin has been stable since that time at about 10.5. She has felt much better and is ambulating without difficulty. She is passing flatus and bowel movement. Her pain is fairly well controlled. She is breast-feeding. Vital signs are stable. Abdomen is soft with positive bowel sounds 4. Fundus is firm and nontender. Incision is clean dry and intact with renee in place. Extremities show negative Homans. Impression is status post primary low transverse section postoperative day #2. Plan is to discharge home today. Routine postoperative and instructions are given. She will be given a prescription for ibuprofen 600 mg every 6 hours as needed for pain. She will alternate this with [id number] Tylenol. She is advised to follow up in the office in 1 week for a postoperative check and in 6 weeks for a check. She is advised to call the office if she has any further questions or concerns prior to her appointment time. She states she does have a breast pump at home. Procedures: Oxytocin augmentation of labor Primary low transverse section for delivery of a viable female on 10/11/2022 Patient Condition at Discharge: Stable Plan - Discharge Summary New Discharge Prescriptions: New Ibuprofen [Motrin] 600 mg PO Q6H #60 tab Continue Vit No.179/Iron/Folic [ Tablet] 1 each PO DAILY Discharge Medication List Vit No.179/Iron/Folic [ Tablet] 1 each PO DAILY 10/11/22 [History] Ibuprofen [Motrin] 600 mg PO Q6H #60 tab 10/13/22 [Rx] Follow up Appointment(s)/Referral(s): Delmis Canada DO [Doctor of Osteopathic Medicine] - 10/18/22 2:15 pm (6 week follow up with Dr. Candaa November 22 @ 4:00pm) Activity/Diet/Wound Care/Special Instructions: Instructions 1. Do not begin any exercise program for 3 weeks. 2. Do not resume sexual relations for 3 weeks or longer if uncomfortable. 3. You may take tub baths or showers at any time. 4. You may use tampons if desired after 3 weeks. 5. Keep the area of episiotomy (stitches) clean and dry. 6. If you are not nursing, wear a good fitting, supportive bra during the day and limit fluid intake for at least 1 week to prevent breast engorgement. 7. Call the office, [phone], within the next week to make appointment for your 6 week checkup if it has not already been made. 8. Report any of the following occurrences to the doctor promptly: a. Heavy, excessive bleeding b. Chills, fever c. Burning or frequency of urination d. Pain or redness and breasts if nursing e. Increasing pain or swelling in episiotomy (stitches). In addition to the above instructions, the following additional should be followed: 1. No heavy lifting or straining (exercising) until after 6 week checkup. 2. Keep abdominal incision clean and dry: You may wear a dressing if more comfortable. 3. Make office appointment for 10 days after going home or as instructed by her doctor. Discharge Disposition: HOME SELF-CARE
== END 2022-10-13 12:33 | disposition home or self-care (01) | DRG 787 ==
LOC: FBPOP 02:26 → 4FBP 02:49
PROVIDERS: ADMIT Obstetrics & Gynecology; ATTEND Obstetrics & Gynecology
PROC: 3E033VJ Introduction of Other Hormone into Peripheral Vein, Percutaneous Approach (ICD-10-PCS; 2022-10-11)
PROC: 30233N1 Transfusion of Nonautologous Red Blood Cells into Peripheral Vein, Percutaneous Approach (ICD-10-PCS; 2022-10-11)
PROC: 10D00Z1 Extraction of Products of Conception, Low, Open Approach (ICD-10-PCS; principal; 2022-10-11 16:15)
DX: O42.92 Full-term premature rupture of membranes, unspecified as to length of time between rupture and onset of labor (principal); D62 Acute posthemorrhagic anemia; O72.1 Other immediate postpartum hemorrhage; O99.43 Diseases of the circulatory system complicating the puerperium; I95.9 Hypotension, unspecified; O24.420 Gestational diabetes mellitus in childbirth, diet controlled; O62.0 Primary inadequate contractions; O43.193 Other malformation of placenta, third trimester; Z3A.39 39 weeks gestation of pregnancy; Z37.0 Single live birth; O90.81 Anemia of the puerperium
CPT/HCPCS: 84112; 85025; 86850; 86900; 86901; 86920; 99213

== ENCOUNTER 2024-11-19 09:58 | Inpatient (IN) | payer BC, OTHER ==
[2024-11-19] MEDS ORDERED: TRANEXAMIC 1,000 MG/100ML-NACL 1,000 MG in EMPTY BAG 1 BAG IV PRN (10:19)
[2024-11-19] MEDS ORDERED: OXYTOCIN 10 UNIT/ML 1 ML VIAL IM PRN (10:19)
[2024-11-19] MEDS ORDERED: METHYLERGONOVINE 0.2 MG/ML 1 ML AMP IM PRN (10:19)
[2024-11-19] MEDS ORDERED: miSOPROStoL 200 MCG TAB PO PRN (10:19)
[2024-11-19] MEDS ORDERED: CARBOPROST TROMETHAMINE 250 MCG/ML 1 ML AMP IM PRN (10:19)
[2024-11-19 10:26] LABS: Basophils # (A) 0.05 10*3/uL (0.00-0.10); Basophils % (A) 0.6 %; Eosinophils # (A) 0.03 10*3/uL (0.04-0.35); Eosinophils % (A) 0.3 %; HCT 36.2 % (37.2-46.3); HGB 12.5 g/dL (12.0-15.0); Lymphocytes # (A) 2.73 10*3/uL (0.90-5.00); Lymphocytes % (A) 31.3 %; MCH 31.8 pg (27.0-32.0); MCHC 34.5 g/dL (32.0-37.0); MCV 92.1 fL (80.0-97.0); Mean Platelet Volume 8.8 fL (9.5-12.2); Monocytes # (A) 0.55 10*3/uL (0.20-1.00); Monocytes % (A) 6.3 %; Neutrophils # (A) 5.29 10*3/uL (1.80-7.70); Neutrophils % (A) 60.8 %; Platelet Count 162 10*3/uL (140-440); RBC 3.93 10*6/uL (4.10-5.20); RDW 14.1 % (11.5-14.5); WBC 8.71 10*3/uL (4.50-10.00)
[2024-11-19] MEDS ORDERED: OXYTOCIN 30 UNITS/500 ML NS 30 UNIT in SALINE 1 500ML.BAG IV SCH (10:30)
[2024-11-19] MEDS: LACTATED RINGERS 1,000 ML IV SCH ×2 (10:30→12:50)
[2024-11-19] MEDS: CITRIC ACID-SODIUM CITRATE 15 ML CUP PO ONE (11:37)
[2024-11-19] MEDS ORDERED: PHENYLEPHRINE-0.9% NACL SYG 1,000 MCG/10 ML SYRINGE ONE (12:05)
[2024-11-19] MEDS ORDERED: ONDANSETRON 4 MG/2 ML VIAL ONE (12:05)
[2024-11-19] MEDS ORDERED: MORPHINE SULFATE (PF) 0.3 MG/0.3 ML SYR ONE (12:05)
[2024-11-19] MEDS ORDERED: NALBUPHINE (ANES) 10 MG/ML - 1 ML AMP ONE (12:05)
--- NOTE | 2024-11-19 13:02 | P.HPOB ---
History of Present Illness H&P Date: 11/19/24 Chief Complaint: IUP @ 39 0/7 weeks h/o ceasrean section x 1 24 yo at 39 0/7 weeks that presents to labor and delivery for scheduled repeat section. Estimated due date of 11/26 by good dating parameters. Has been receiving routine care which has been complicated by diagnosis of gestational diabetes which has been well-controlled with diet alone. She does note good movement denies contractions vaginal bleeding or loss of fluid. On blood work this patient is a blood type of O+, rubella status immune, hepatitis B surface engine negative, HIV negative, RPR is nonreactive, grew beta strep cultures negative. Review of Systems Constitutional: Denies chills, Denies fatigue, Denies fever Ears, nose, mouth and throat: Denies headache Cardiovascular: Denies leg edema Respiratory: Denies dyspnea Gastrointestinal: Denies constipation, Denies diarrhea, Denies nausea, Denies vomiting Genitourinary: Reports Past Medical History Past Medical History: No Reported History Additional Past Medical History / Comment(s): GDM History of Any Multi-Drug Resistant Organisms: None Reported Past Surgical History: Section Past Anesthesia/Blood Transfusion Reactions: No Reported Reaction Past Psychological History: No Psychological Hx Reported Smoking Status: Never smoker Past Alcohol Use History: None Reported Past Drug Use History: None Reported - Past Family History Mother Family Medical History: Cancer Medications and Allergies Home Medications Medication Instructions Recorded Confirmed Type Vit No.179/Iron/Folic 1 each PO DAILY 10/11/22 11/19/24 History [ Tablet] Ferrous Sulfate, Dried [Iron] 45 mg PO DAILY 11/19/24 11/19/24 History Allergies Allergy/AdvReac Type Severity Reaction Status Date / Time No Known Allergies Allergy Verified 11/19/24 10:19 Exam Osteopathic Statement: *. No significant issues noted on an osteopathic structural exam other than those noted in the History and Physical/Consult. Vital Signs Temp Pulse Resp BP Pulse Ox 11/19/24 10:23 98.4 F 116 H 18 118/72 99 Intake and Output 11/18/24 11/19/24 11/19/24 22:59 06:59 14:59 Other: Weight 46.72 kg Targeted physical exam is performed this date in general is well-nourished well- developed female in no acute distress, breathing is nonlabored, heart has a regular rhythm, abdomen is gravid, heart tones noted to be category 1 and she is not mireya. Results Result Diagrams: 11/19/24 10:18 Abnormal Lab Results - Last 24 Hours (Table) 11/19/24 Range/Units 10:18 RBC 3.93 L (4.10-5.20) 10*6/uL Hct 36.2 L (37.2-46.3) % MPV 8.8 L (9.5-12.2) fL Immature Gran # 0.06 H (0.00-0.04) 10*3/uL Eosinophils # 0.03 L (0.04-0.35) 10*3/uL Assessment and Plan (1) Term Current Visit: Yes Status: Acute Code(s): Z34.90 - ENCNTR FOR SUPRVSN OF NORMAL , UNSP, UNSP TRIMESTER SNOMED Code(s): 29293674 (2) GDM, class A1 Current Visit: Yes Status: Acute Code(s): O24.410 - GESTATIONAL DIABETES MELLITUS IN , DIET CONTROLLED SNOMED Code(s): 86800893 (3) History of section Current Visit: Yes Status: Acute Code(s): Z98.891 - HISTORY OF UTERINE SCAR FROM PREVIOUS SURGERY SNOMED Code(s): 380018727 Plan: Admit to labor and delivery for scheduled repeat section Anesthesia into see patient Informed consent obtained
[2024-11-19] MEDS ORDERED: NALOXONE 0.4 MG/ML 1 ML VIAL IV PRN (13:06)
[2024-11-19] MEDS ORDERED: diphenhydrAMINE 25 MG CAP PO PRN (13:06)
[2024-11-19] MEDS ORDERED: SIMETHICONE 80 MG CHEWABLE PO PRN (13:06)
[2024-11-19] MEDS ORDERED: ONDANSETRON 4 MG/2 ML VIAL IVP PRN (13:06)
[2024-11-19] MEDS ORDERED: diphenhydrAMINE 50 MG CAP PO PRN (13:06)
[2024-11-19] MEDS ORDERED: ZOLPIDEM 5 MG TAB PO PRN (13:06)
[2024-11-19] MEDS ORDERED: METOCLOPRAMIDE 5 MG/ML 2 ML VIAL IVP PRN (13:06)
--- NOTE | 2024-11-19 13:06 | P.OP ---
Date of Procedure: 11/19/24 Preoperative Diagnosis: IUP at 39-0/7 weeks Gestational diabetes, diet-controlled History of section x 1 desires repeat Postoperative Diagnosis: Same Procedure(s) Performed: Repeat section Anesthesia: spinal Surgeon: Dana Alves Wallpaperer Helper #1: Asia Hood Estimated Blood Loss (ml): 509 IV fluids (ml): 900 Urine output (ml): 100 (Yellow, clear) Pathology: none sent Condition: stable Disposition: observation Indications for Procedure: History of section x 1 desires repeat Operative Findings: Viable female infant delivered at 1225, weight of 7 pounds 4 ounces, Apgars of 9 and 9 at 1 and 5 minutes respectively. Description of Procedure: The patient was prepped and draped in the usual fashion after spinal anesthesia was administered by the anesthesia department. Prior keloid Pfannenstiel incision is appreciated, excised completely, incision was extended to the fascia, fascia was incised in the midline and extended laterally. Peritoneum was identified and entered, the bladder peritoneum was elevated and incised and reflected distally. A 2 cm incision was made in the transverse plane of the lower uterine segment to enter the uterus at which time clear fluid was noted. The incision was extended in both directions using the bandage scissors. The head was encountered within the field and delivered up and through the incision where the nose and mouth were thoroughly suctioned. Remainder of the was delivered onto the surgical field where the cord was doubly clamped, cut, and the infant was passed for resuscitative measures with weight and Apgars as noted above. A segment of cord was then doubly clamped, cut, and set aside should cord gases become necessary. The placenta was delivered manually, intact, and was grossly normal with a grossly normal three-vessel cord. The uterus was exteriorized and the interior cavity of the uterus swept of any remaining placental and membranous fragments with a laparotomy sponge. The margins of the incision were grasped with Allis clamps and the incision closed in 2 layers. First layer was a running locking layer of 0 chromic catgut from margin to margin followed by a second layer of imbricating 0 Vicryl from margin to margin. Any small points of bleeding were then made hemostatic with the Bovie. Once hemostasis was achieved, the posterior cul-de-sac was suctioned with a guard and the uterine and ovarian findings are as noted above. The uterus was replaced within the abdominal cavity and the gutters swept of any remaining blood fluid or clot. The incision was again reexamined and hemostasis was noted to be excellent. Any small point of bleeding were made hemostatic with the Bovie. Once hemostasis was achieved the parietal peritoneum was loosely reapproximated. The layer of muscles were examined and made hemostatic with the Bovie. Attention was then turned to the fascia which was closed with 2 running stitches of 0 Vicryl proceeding from the lateral margins to the midpoint. The subcutaneous tissues were irrigated, made hemostatic with the Bovie, and reapproximated with a running stitch of 30 Vicryl. The skin was reapproximated with 4-0 Monocryl. Estimated blood loss for the case was approximately 509 mL. All sponge instrument and needle counts are correct. There were no complications. The patient tolerated the procedure well and proceeded to the recovery room in stable condition. Both mother and infant are resting comfortably in recovery.
[2024-11-19] MEDS: ACETAMINOPHEN IV (For NPO) 1,000 MG in EMPTY BAG 1 BAG IVPB ONE (13:22)
[2024-11-19] MEDS: IBUPROFEN IV 800 MG in SODIUM CHLORIDE 0.9% 250 ML IV ONE (17:23)
[2024-11-19] MEDS: ACETAMINOPHEN TAB 500 MG TAB PO SCH (20:56)
[2024-11-19] MEDS: SENNOSIDES-DOCUSATE SODIUM 1 EACH TAB PO SCH (20:56)
[2024-11-19] MEDS: diphenhydrAMINE 50 MG/ML 1 ML VIAL IVP PRN (20:56)
[2024-11-20] MEDS: IBUPROFEN 800 MG TAB PO SCH (00:41)
[2024-11-20] MEDS: diphenhydrAMINE 50 MG/ML 1 ML VIAL IVP PRN (06:01)
[2024-11-20 06:57] LABS: Basophils # (A) 0.04 10*3/uL (0.00-0.10); Basophils % (A) 0.4 %; Eosinophils # (A) 0.02 10*3/uL (0.04-0.35); Eosinophils % (A) 0.2 %; HCT 28.1 % (37.2-46.3); Lymphocytes # (A) 2.55 10*3/uL (0.90-5.00); Lymphocytes % (A) 27.8 %; MCH 31.7 pg (27.0-32.0); MCHC 34.2 g/dL (32.0-37.0); MCV 92.7 fL (80.0-97.0); Mean Platelet Volume 8.9 fL (9.5-12.2); Monocytes # (A) 0.65 10*3/uL (0.20-1.00); Monocytes % (A) 7.1 %; Neutrophils # (A) 5.86 10*3/uL (1.80-7.70); Platelet Count 139 10*3/uL (140-440); RBC 3.03 10*6/uL (4.10-5.20); WBC 9.17 10*3/uL (4.50-10.00)
[2024-11-20 07:08] LABS: HGB 9.6 g/dL (12.0-15.0)
--- NOTE | 2024-11-20 07:34 | P.PNOBGPC ---
Subjective - Subjective Principal diagnosis: Postop day 1, repeat section Interval history: Patient is doing well postoperatively. She is ambulating and voiding without difficulty. She is tolerating a regular diet with no nausea or vomiting. States her pain is well-controlled. She denies concerns. Patient reports: Reports appetite normal, Reports voiding normally, Reports pain well controlled, Reports ambulating normally : doing well Objective - Vital Signs Latest vital signs: Vital Signs Temp Pulse Resp BP Pulse Ox 11/20/24 00:00 98.4 F 79 16 113/76 98 11/19/24 20:30 97.9 F 71 16 113/76 98 11/19/24 16:53 97.6 F 80 16 92/58 11/19/24 14:51 97.8 F 86 18 95/50 97 11/19/24 14:38 85 18 103/58 100 11/19/24 14:23 86 16 94/55 99 11/19/24 14:08 72 18 99/56 98 11/19/24 13:53 75 18 99/56 99 11/19/24 13:38 71 18 94/71 97 11/19/24 13:23 93 16 91/59 98 11/19/24 13:08 87 16 105/54 97 11/19/24 12:53 97.5 F L 112 H 18 97/52 99 11/19/24 10:23 98.4 F 116 H 18 118/72 99 Intake and Output 11/19/24 11/20/24 11/20/24 22:59 06:59 14:59 Intake Total 100 Output Total 250 800 Balance -150 -800 Intake: Oral 100 Output: Urine 250 800 Uretheral (Lacey) 250 - Exam Extremities: Present: normal, edema Abdomen: Present: normal appearance, soft Incision: Present: normal, dry, intact Uterus: Present: normal, firm - Labs Labs: Abnormal Lab Results - Last 24 Hours (Table) 11/19/24 11/20/24 Range/Units 10:18 06:18 RBC 3.93 L 3.03 L (4.10-5.20) 10*6/uL Hgb 9.6 L D (12.0-15.0) g/dL Hct 36.2 L 28.1 L (37.2-46.3) % Plt Count 139 L (140-440) 10*3/uL MPV 8.8 L 8.9 L (9.5-12.2) fL Immature Gran # 0.06 H 0.05 H (0.00-0.04) 10*3/uL Eosinophils # 0.03 L 0.02 L (0.04-0.35) 10*3/uL Assessment and Plan (1) Term Current Visit: Yes Status: Acute Code(s): Z34.90 - ENCNTR FOR SUPRVSN OF NORMAL , UNSP, UNSP TRIMESTER SNOMED Code(s): 39018501 (2) GDM, class A1 Current Visit: Yes Status: Acute Code(s): O24.410 - GESTATIONAL DIABETES MELLITUS IN , DIET CONTROLLED SNOMED Code(s): 73596505 (3) History of section Current Visit: Yes Status: Acute Code(s): Z98.891 - HISTORY OF UTERINE SCAR FROM PREVIOUS SURGERY SNOMED Code(s): 160535311 (4) Status post section Current Visit: Yes Status: Acute Code(s): Z98.891 - HISTORY OF UTERINE SCAR FROM PREVIOUS SURGERY SNOMED Code(s): 744667444 Plan: Doing well postoperatively, continue routine postoperative care Anticipate discharge home tomorrow
--- NOTE | 2024-11-20 07:54 | P.PN ---
Progress Note - Text Progress Note Date: 11/20/24 Postop day 1 from under spinal anesthesia with intrathecal morphine given for postop pain management. Patient is doing well. Pain is well controlled. On visual analog scale 2/10 Mild itching present No nausea or vomiting reported. No Headache or weakness and numbness in the legs. No complications from spinal anesthesia.
[2024-11-20] MEDS: FERROUS SULFATE 325 MG TAB PO SCH (08:10)
[2024-11-20] MEDS: PRENATAL VIT-IRON-FOLIC ACID 1 EACH TABLET PO SCH (08:11)
[2024-11-21 00:42] VITALS: PULSE 73; TEMP 98.1
[2024-11-21 07:52] VITALS: BP 103/65; RESP 16
--- NOTE | 2024-11-21 08:41 | P.DS ---
Providers Date of admission: 11/19/24 09:58 Expected date of discharge: 11/21/24 Attending physician: Dana Alves Primary care physician: Stated None - Discharge Diagnosis(es) (1) Term Current Visit: Yes Status: Acute (2) GDM, class A1 Current Visit: Yes Status: Acute (3) History of section Current Visit: Yes Status: Acute (4) Status post section Current Visit: Yes Status: Acute Hospital Course: 24-year-old G2 now P2 that presented to labor and delivery for scheduled repeat section on 11/19. Patient had been receiving routine care which had been complicated by diagnosis of gestational diabetes, diet- controlled. For full details in this patient please see the dictated history and physical. Patient was admitted and taken back to the operating suite where repeat section was performed without difficulty. Viable female infant was delivered at 1225, weight of 7 pounds 4 ounces. For full details on the C- section please see the dictated operative report. Patient's postoperative course has been uneventful. In this postoperative day #2 she is ambulating and voiding without difficulty. She is tolerating a regular diet without nausea or vomiting. States her pain is well-controlled. She denies concerns and is anxious for discharge home. Patient Condition at Discharge: Good Plan - Discharge Summary New Discharge Prescriptions: No Action Ferrous Sulfate, Dried [Iron] 45 mg PO DAILY Vit No.179/Iron/Folic [ Tablet] 1 each PO DAILY Discharge Medication List Vit No.179/Iron/Folic [ Tablet] 1 each PO DAILY 10/11/22 [History] Ferrous Sulfate, Dried [Iron] 45 mg PO DAILY 11/19/24 [History] Follow up Appointment(s)/Referral(s): Dana Alves DO [Doctor of Osteopathic Medicine] - 12/05/24 1:45 pm (Post appointment 01-02-2025 at 1:00pm) Patient Instructions/Handouts: Vaginal Delivery (GEN), Vaginal Delivery (DC) Activity/Diet/Wound Care/Special Instructions: No tub baths or intercourse until 6 weeks . [id number] ibuprofen 600 mg or 3 tablets every 6 hours as needed for pain. Routine postoperative check at 2 weeks. Discharge Disposition: HOME SELF-CARE
== END 2024-11-21 11:40 | disposition home or self-care (01) | DRG 788 ==
LOC: 4FBP 09:58
PROVIDERS: ADMIT Obstetrics & Gynecology Obstetrics; ATTEND Obstetrics & Gynecology Obstetrics
PROC: 10D00Z1 Extraction of Products of Conception, Low, Open Approach (ICD-10-PCS; principal; 2024-11-19 12:00)
DX: O34.211 Maternal care for low transverse scar from previous cesarean delivery (principal); O24.420 Gestational diabetes mellitus in childbirth, diet controlled; Z37.0 Single live birth; Z3A.39 39 weeks gestation of pregnancy
CPT/HCPCS: 83036; 85025; 86850; 86900; 86901